=== PATIENT | female | born 1955 | race Caucasian/White ===

== ENCOUNTER → 2019-12-22 11:43 | Outpatient (CLI) | payer OTHER, SELFPAY ==
[2019-12-22 13:17] LABS: Add Manual Diff / Slide Review NO; Basophils Absolute Auto 0 /uL (0-100); Basophils Percent Auto 0.6 % (0-2); Eosinophils Absolute Auto 200 /uL (0-450); Eosinophils Percent Auto 3.6 % (2-4); Hematocrit 41.1 % (36-46); Hemoglobin 13.9 g/dL (12.0-16.0); Lymphocytes Absolute Auto 1200 /uL (1100-4500); Lymphocytes Percent Auto 23.1 % (25-40); Mean Corpuscular HGB Conc 33.9 % (30-36); Mean Corpuscular Hemoglobin 29.4 PG (26-34); Mean Corpuscular Volume 86.8 fL (80-100); Monocytes Absolute Auto 300 /uL (0-900); Monocytes Percent Auto 6.8 % (3-14); Neutrophils Absolute Auto 3400 /uL (1500-7000); Neutrophils Percent Auto 65.9 % (50-75); Platelet Count 179 X10^3/uL (150-400); Red Blood Cell Count 4.74 X10^6/uL (4.0-5.2); Red Cell Distribution Width 13.4 % (11.6-14.8); White Blood Cell Count 5.1 X10^3/uL (4.5-11.0)
[2019-12-22 14:28] LABS: Cancer Antigen 125 < 5.5 U/mL (0-35)
[2019-12-25 12:08] LABS: Human Epididymis Prot 4 56.2 pmol/L (0.0-96.5)
== END ==
PROVIDERS: PCP Nurse Practitioner Family; Referring Provider Specialist; Visit Provider Specialist
DX: N83.8 Other noninflammatory disorders of ovary, fallopian tube and broad ligament (principal)
CPT/HCPCS: 36415; 85025; 86304; 86305

== ENCOUNTER 2020-01-14 08:25 | Day surgery (SDC) | payer OTHER, SELFPAY ==
[2020-01-10 12:29] VITALS: BMI 29.2
[2020-01-14] VITALS (14 sets, daily range): BP systolic 108–150; BP diastolic 57–91; PULSE 57–72; RESP 9–22; TEMP 35.5–37; O2SAT 90–100; BMI 29.3
--- NOTE | 2020-01-14 | PATH_ITS ---
[facility] Accession Number: [id number] . 01 Material submitted: . ovary - BILATERAL OVARIES . 01 Clinical history: . SDC . 01 Diagnosis: Fallopiant Tubes, Ovaries, and Left Adnexal Mass, Bilateral Salpingo-oophorectomy and Resection: Serous borderline tumor of ovaries, bilateral. - Specimen integrity of ovaries: Capsule intact, bilateral. - Tumor site: Right and left ovaries. - Ovarian surface involvement: Present, bilaterally. - Fallopian tube surface involvement: Not identified (see comment). - Tumor size: 1.1 cm and 0.3 cm in maximum dimension, respectively (laterality not specified). - Pathlogic stage (AJCC 8th Edition): pT1c2. Benign leiomyoma, (reportedly left adnexal mass, see comment). [facility] 01/19/2020 1855 Local . 01 Comment: Rare degenerated clusters of tumor cells are identified detached within a fallopian tube lumen (the fallopian tube attached to ovary, block A2, laterality not specified). Tumor involvement of the fallopian tube surface is not seen. . 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 This impression is confirmed with uniform expression to the *immunostain to desmin. Additionally, there is no evidence for a fibroma/fibrothecoma, given the aforementioned finding and the negative immunostain to inhibin. The location of these fragments is reportedly left adnexa and described in patient's operative note (dated 01/14/20) as hugging the ovary. The origin of this leiomyoma may be subserosal from uterus or potentially broad ligament, and although not favored, origin from the corresponding ovary may also be possible. . Plant Operator slides of this case are also reviewed by Dr. Kymberly Jenkins, who concurs with the given intepretation. . The results of this case are verbally provided by Dr. Gamino to Nurse Bunn on 01/19/2020 at 1:45 p.m. . The external controls for the immunostains are appropriately postive. * This test was developed and its performance characteristics determined by [employer]. It has not been cleared or approved by the U.S. Food and Drug Administration. The FDA has determined that such clearance or approval is not necessary. This test is used for clinical purposes. It should not be regarded as investigational or for research. . 01 Electronically signed: . Maine Gamino MD, Pathologist NPI- [id number] . 01 Gross description: . Received in formalin, labeled with the patient's name, MRN and bilateral ovaries, are two ovaries (4 grams, 3.0 x 1.4 x 1.4 cm and 3 grams, 4.0 x 1.3 x 1.0 cm) with an attached fimbriated fallopian tube to the heavier ovary (5.1 cm in length by 0.5 cm in diameter). The external surfaces of the ovaries are pink-chopra and cerebriform. The ovaries are serially sectioned to reveal a chopra-white smooth cut surface. The preschool adviser ovary has a 1.0 cm in greatest dimension smooth lined cyst. Separate within the container is a 1.3 cm in length by 0.3 cm in diameter possible fimbriated fallopian tube and a 6.5 x 6.0 x 2.5 cm aggregate of chopra-white fibrotic fragments of tissue. The external surfaces of the fallopian tubes are pink-chopra and smooth. The fallopian tubes are serially sectioned to reveal a chopra-white pinpoint lumen. Plant Operator sections are submitted as follows: . A1: veterans employment representative sections of heavier ovary. A2: veterans employment representative sections of fallopian tube attached to heavier ovary and entire trisected fimbriated end. A3: veterans employment representative sections of preschool adviser ovary. A4: veterans employment representative sections of fallopian tube separate within the container and entire serially sectioned fimbriated end. A5-A6: veterans employment representative sections of fibrotic tissue within the container. (SD/[facility] [id number]) . After initial microscopic review, additional veterans employment representative sections are submitted as follows: . A7-A9: remainder of heavier ovary. A10-A11: remainder of fallopian tube attached to heavier ovary. A12-A13: remainder of preschool adviser ovary. (SD:[id number]) /MRV 01/19/2020 1855 Local . 01 Pathologist provided ICD-10: D49.59 . 01 CPT . 938898, S46124, [id number] Performed at: 01 [facility] [address] [place] [address], [place], [place] [id number] MD Vicente Palacios MD Phone: [phone]
--- NOTE | 2020-01-14 09:05 | SUR.OPER ---
Lithotomy on padded OR bed, head on pillow, arms secured on padded arm boards at <90 degrees abduction. Legs secured in padded yellow fins stirrups.
--- NOTE | 2020-01-14 09:09 | PM.PREOP ---
Pre-operative Note COVID-19 COVID-19 status: Negative Result date/Date tested (Pos, Neg/Pending): 01/12/20 Interval Note History & Physical reviewed/Exam performed by Physician: Yes Changes to H&P: No
[2020-01-14] MEDS: ACETAMINOPHEN 325 MG TABLET 975 MG PO (09:13)
[2020-01-14] MEDS: LACTATED RINGERS 1,000 ML 42 ML IV (09:15)
[2020-01-14] MEDS: BUPIVACAINE 0.5% W/ EPI (PF) 30 ML VIAL INJ (10:13)
--- NOTE | 2020-01-14 11:00 | PM.OP.1 ---
Operative Date/Time/Diagnoses Date of procedure: 01/14/20 Time of procedure: 11:00 Pre-op diagnosis: Left adnexal mass thought to be ovarian fibroma with left lower quadrant pain Post-op diagnosis: same Procedure & Clinicians Procedure: Laparoscopic bilateral salpingo oophorectomy Same procedure as scheduled: Yes Indications: Patient with 5 cm solid adnexal mass thought to be a benign ovarian fibroma with increasing left lower quadrant pain requesting laparoscopic removal mass, ovaries Surgeon: Rosalva Concepcion Click Yes if Unassisted: Yes Anesthesia Type: General Operative Notes Findings: Normal intra-abdominal contents with normal right ovary and segment of fallopian tube with some adhesions of the omentum, large bilobed solid mass the with attached normal ovarian tissue, segment of fallopian tube with adhesions of the omentum and descending colon to the mass. Closure Type: primary Specimen(s): other (Bilateral ovaries and segments of fallopian tubes) Estimated Blood Loss (mL): 10 Blood products transfused: none Procedure in detail: Patient was brought to the operating room where she underwent general anesthesia. She was placed in low yellowfin stirrups and prepped and draped in usual sterile fashion. No antibiotics were indicated. Pulsatile stockings were in place and functional. Active warming was in place. The area of the incisions were injected with half percent Marcaine with epinephrine. An incision was made in the umbilicus with a scalpel and the Verres needle placed in the abdomen. Confirmation of correct placement of the needle was performed by withdrawing on the syringe and then allowing fluid to fall freely through the needle. The abdomen was insufflated to 4 L of CO2. A 5 mm trocar was placed under direct visualization. 2 other 5 mm trochars were placed in the right and left lower quadrant under direct visualization after incising the skin. There did not appear to be any damage with placement of the trocars. The right fallopian tube was grasped and the infundibulopelvic ligament wasby cauterized and cut with the PK generator. Sequential bites were taken along the broad ligament hugging the ovary. The adhesions of the omentum or cauterized and cut. The ovary and segment of fallopian tube were placed in the cul-de-sac for removal later. The adhesions of the omentum and the descending colon were removed with sharp and blunt dissection. Bleeding was controlled with the PK generator. Sequential bites along the infundibulopelvic ligament hugging the tumor were performed. Hugging the ovary the tumor with the segment of fallopian tube and ovary were freed. Adequate hemostasis was noted. A 12 mm port was placed suprapubically. The Endo-Catch bag was placed through the port and the ovaries were placed in the bag and brought up to the incision. The incision was enlarged with scissors. The tumor was cut into pieces to allow removal. The bag was removed with remaining to in place. The fascial layer was repaired with 0 Vicryl suture at the 12 mm trocar site. The trochars were removed. Skin was closed with 4-0 Vicryl. The patient went to recovery room in good condition. Counts of instruments and sponges were correct. Complications: none Post-operative Condition: stable Disposition: same day surgery Plan for aftercare: Home when awake and stable. Further treatment if needed based on pathology report
[2020-01-14] MEDS: METOCLOPRAMIDE 10 MG/2 ML INJ IV (11:07)
[2020-01-14] MEDS: ONDANSETRON 4 MG/2 ML INJ IV ×2 (11:10→11:24)
[2020-01-14] MEDS: LACTATED RINGERS 1,000 ML 120 ML IV (11:16)
[2020-01-14] MEDS: hydrOXYzine 50 MG/ML INJ 25 MG IM (11:26)
[2020-01-14] MEDS: LORazepam 2 MG/ML INJ 0.25 MG IV ×2 (11:49→12:14)
--- NOTE | 2020-01-14 12:04 | SUR.PHASEI ---
Assumed care from Michelle Echevarria Pt had been nauseated, medicated and is now feeling better.
--- NOTE | 2020-01-14 12:16 | SUR.PHASEI ---
Pt rested comfortably then asked for knees to be elevated and warm blanket, then pt awakened, dry heaving began, wanted legs back down and blanket off. Ice pack placed to forehead and second dose of Ativan given.
--- NOTE | 2020-01-14 12:26 | SUR.PHASEI ---
Reported back to DOMINIC Echevarria
[2020-01-14] MEDS: diphenhydrAMINE 50 MG/ML VIAL 25 MG IV (12:43)
--- NOTE | 2020-01-14 13:11 | SUR.PHASEI ---
Patient had nausea and vomiting of sputum throughout phase 1. Dr. Madie Concepcion aware. See emar for medication interventions. Stated she had some pain, but refused any pain medications. Upon transfer to phase 2 patient is resting peacefully and states nausea is improved. Placed on continuous pulse oximatry and2L O2 while she sleeps in phase 2. Report given to receiving RN in phasee 2
--- NOTE | 2020-01-14 14:50 | SUR.PHASEII ---
1320 late entry sleeping on continuous pulse ox O2 sat 100%, HR 62 1335 Continues sleeping, resp even and regular. Sat 100%, O2 to 2LNP 1355 VSS on RA, states that she feels better and wants to go home.
--- NOTE | 2020-01-14 14:53 | SUR.PHASEII ---
Addendum entered by Leeanne Ott R.N. 01/14/20 15:00: times 1410 and 1430 Original Note: 1310 Ice chips and soda given for ride home. Umbilical dressing has large amount of red drainage, reinforced with 2x2 and extras and tape given for change if needed. 1330 [place] boarding pass given. To car in w/c, has a bed to lie down. Assisted into van by spouse, stable on feet with standby.
== END 2020-01-14 14:30 | disposition home or self-care (01) ==
PROVIDERS: PCP Nurse Practitioner Family; Referring Provider Nurse Practitioner Family; Visit Provider Specialist
PROC: 0UT24ZZ Resection of Bilateral Ovaries, Percutaneous Endoscopic Approach (ICD-10-PCS; CPT 58661; principal; 2020-01-14 09:45)
DX: D49.59 Neoplasm of unspecified behavior of other genitourinary organ (principal); F41.9 Anxiety disorder, unspecified; F32.9 Major depressive disorder, single episode, unspecified; J45.909 Unspecified asthma, uncomplicated; E78.5 Hyperlipidemia, unspecified
CPT/HCPCS: 58661; J0330; J0360; J1100; J1200; J1885; J2060; J2250; J2405; J2704; J2765; J3010; J3410

== ENCOUNTER → 2020-05-17 08:09 | Outpatient (CLI) | payer OTHER, SELFPAY ==
--- NOTE | 2020-05-17 | DI.MRI.S_ITS ---
PROCEDURE: MR PELVIS WO/W CON INDICATIONS: Malignant neoplasm of unspecified ovary TECHNIQUE: Coronal HASTE, sagittal breath-hold T2 FSE; axial T1 FSE with and without fat saturation through the pelvis. Optional long- and short-axis uterine nonbreath-hold T2 FSE through the uterus. Sagittal or axial dynamic VIBE during administration of contrast. Post-contrast axial or coronal VIBE/2-D FLASH with fat saturation from the iliac crests to the symphysis. Optional diffusion weighted imaging and ADC may be performed. COMPARISON: [facility], , PELVIS W&WO CONTRAST, 07/03/2017, 12:48. FINDINGS: Image quality: There is mild motion artifact. Uterus: Surgically absent. Adnexa: The ovaries are surgically absent. No discrete suspicious pelvic mass identified. Urinary system: Bladder wall is normal in thickness. Distal ureters are non distended. Urethra appears normal in morphology. Nodes and vessels: No pelvic or inguinal adenopathy by size criteria. Iliac vessels are normal in size. Bowel and peritoneum: No pathologic free pelvic fluid. Inferior colon and small bowel loops are normal in caliber. Soft tissues: No inguinal hernias. No findings of pelvic floor incompetence in the absence of provocation. Bones: Marrow demonstrates normal overall signal. Multilevel degenerative changes demonstrated within the lower lumbar spine including moderate degeneration at L4-5 with associated endplate edema and enhancement. No suspicious intraosseous lesions to suggest metastatic disease. A small focus of enhancement in the proximal right femur appears similar to the prior study. IMPRESSION: 1. No evidence of new recurrent or metastatic disease in the pelvis. Dictated by: Vicente Koehler M.D. on 05/17/2020 at 16:56 Approved by: Vicente Koehler M.D. on 05/17/2020 at 17:01
== END ==
PROVIDERS: PCP Family Medicine; Referring Provider Obstetrics & Gynecology; Visit Provider Obstetrics & Gynecology
DX: C56.9 Malignant neoplasm of unspecified ovary (principal)
CPT/HCPCS: 72197